=== PATIENT | male | born 1935 | race Caucasian/White ===

== ENCOUNTER 2021-10-28 13:20 | Emergency (ER) | payer MEDICARE ==
[2021-10-28 14:06] LABS: #Eosinphils 0.1 thou/uL (0.0-0.7); #Lymphocytes 0.7 thou/uL (1.20-3.40); #Monocytes 0.7 thou/uL (0.11-0.59); #Neutrophils 7.2 thou/uL (1.40-6.50); %Basophils 0.3 % (0.0-1.0); %Eosinophils 0.6 % (0.0-10.0); %Lymphocytes 8.4 % (21.0-51.0); %Monocytes 8.1 % (0.0-10.0); %Neutrophils 82.5 % (42.0-75.0); Hemoglobin 13.3 g/dL (14.0-18.0); Mean Corpuscular HGB CONC 29.4 g/dL (32.0-36.0); Mean Corpuscular Hemoglobin 33.4 pg (27.0-31.0); Mean Platelet Volume 9.5 fL (7.4-10.4); Platelet Count 224 thou/uL (130-400); RBC Distribution Width 13.3 % (11.5-14.5); Red Blood Cell (RBC) Count 3.99 mill/uL (4.70-6.10); White Blood Cell (WBC) Count 8.8 thou/uL (4.8-10.8)
[2021-10-28 14:19] LABS: INR-International Normal Ratio 1.1; Prothrombin Time 14.8 sec (12.0-14.7)
[2021-10-28] MEDS ORDERED: Sodium Chloride 0.9% 1,000 ML ONE (14:21)
[2021-10-28] MEDS ORDERED: Norepinephrine 4 MG/4 ML VIAL ONE (14:21)
[2021-10-28] MEDS ORDERED: Acetaminophen 500 MG TAB ONE (14:21)
[2021-10-28 14:22] LABS: D-Dimer Test 0.58 *mcg/mL (0.27-0.43)
[2021-10-28 14:32] LABS: Anion Gap 21 mmol/L (10-20); CKMB 3.8 ng/mL (0-6.6); Globulin 3.8 g/dL (2.4-3.5)
[2021-10-28 14:46] LABS: Bilirubin Negative (Negative); Blood, Urine Negative (Negative); Clarity Clear (Clear); Glucose, Urine (Dipstick) 250 mg/dL (Negative); Ketone, Urine Trace mg/dL (Negative); Leukocyte Negative (Negative); Nitrite Negative (Negative); Protein, Urine (Dipstick) Negative (Neg-Trace); pH, Urine 5.5 (5.0-9.0)
[2021-10-28 14:57] LABS: Albumin 3.6 g/dL (3.4-4.8); BUN (Urea Nitrogen) 47 mg/dL (8.4-25.7); Bilirubin, Total 1.2 mg/dL (0.2-1.2); Calc. Creatinine Clearance 0 mL/min (70-130); Calcium 10.1 mg/dL (7.8-10.44); Carbon Dioxide 33 mmol/L (23-31); Chloride 99 mmol/L (98-107); Estimated GFR 40; Glucose 109 mg/dL (83-110); Potassium 3.6 mmol/L (3.5-5.1); Protein, Total 7.4 g/dL (5.8-8.1); Sodium 149 mmol/L (136-145)
[2021-10-28 14:58] LABS: ALT (SGPT) 16 U/L (8-55); AST (SGOT) 23 U/L (5-34); Alkaline Phosphatase 80 U/L (40-110)
[2021-10-28 15:02] LABS: Amphetamine Not Detected (NotDetected); Barbiturates Screen Not Detected (NotDetected); Benzodiazepine Screen Not Detected (NotDetected); Cocaine Metabolite Screen Not Detected (NotDetected); Medtox Control Line Valid? VALID (VALID); Methadone Not Detected (NotDetected); Methamphetamine Not Detected (NotDetected); Opiate Screen Not Detected (NotDetected); Oxycodone Screen Not Detected (NotDetected); Phencyclidine (PCP) Not Detected (NotDetected); THC/Cannabinoid Screen Not Detected (NotDetected); Tricyclic Screen Not Detected (NotDetected)
[2021-10-28] MEDS ORDERED: Cefepime 2 GM VIAL ONE ×2 (15:14→15:19)
[2021-10-28] MEDS ORDERED: Sodium Chloride 0.9% 0 ML ONE (15:14)
[2021-10-28] MEDS ORDERED: Sodium Chloride 0.9% 100 ML ONE (15:19)
[2021-10-28 15:25] LABS: SARS-CoV-2 NAA Rapid Test Not Detected (NotDetected)
[2021-10-28] MEDS ORDERED: Vancomycin HCl 750 MG VIAL ONE (16:39)
[2021-10-28] MEDS ORDERED: Sodium Chloride 0.9% 500 ML ONE (16:39)
[2021-10-28] MEDS ORDERED: Apixaban 2.5 MG TAB PO SCH (17:00)
== END 2021-10-28 18:10 | disposition short-term general hospital (02) ==
LOC: NAV ERS 13:20
DX: I11.0 Hypertensive heart disease with heart failure (principal); I50.9 Heart failure, unspecified; Z20.822 Contact with and (suspected) exposure to COVID-19; E11.9 Type 2 diabetes mellitus without complications; Z79.899 Other long term (current) drug therapy
CPT/HCPCS: 80306; 81003; 82553; 83605; 83880; 84145; 84484; 85379; 85610; 85730; 87040; 87086; 93005; 96361; 96365; 96375; 36415-59; J0692; J1956; J3370; J7030; J7050; U0002